=== PATIENT | male | born 1970 | race Hispanic/Latino ===

== ENCOUNTER → 2023-05-24 | Outpatient (CLI) | payer BC ==
[~2023-05-24] MED LIST: LIDOCAINE HCL 4% LTA SOL 4 ML VIAL TP ONE; SIMV10TA97 PO
== END | disposition home or self-care (01) ==
LOC: WHH 08:10
PROVIDERS: ATTEND Nurse Practitioner Family
DX: S61.202D Unspecified open wound of right middle finger without damage to nail, subsequent encounter (principal); E11.622 Type 2 diabetes mellitus with other skin ulcer; L98.492 Non-pressure chronic ulcer of skin of other sites with fat layer exposed; E78.5 Hyperlipidemia, unspecified; I10 Essential (primary) hypertension; F17.210 Nicotine dependence, cigarettes, uncomplicated; Z79.899 Other long term (current) drug therapy; X58.XXXD Exposure to other specified factors, subsequent encounter
CPT/HCPCS: 11042; A4450